=== PATIENT | male | born 1995 | race Caucasian/White ===

== ENCOUNTER 2020-02-07 23:36 | Emergency (ER) | payer SELFPAY ==
[~2020-02-07] VITALS: Ht 182.9 cm; Wt 74.8 kg
[2020-02-07 23:44] VITALS: Ht 182.9 cm; Wt 74.8 kg
[2020-02-08 00:30] VITALS: BP 134/83
== END 2020-02-08 01:04 | disposition home or self-care (01) ==
LOC: ED 23:36
DX: S20.212A Contusion of left front wall of thorax, initial encounter (principal); W22.8XXA Striking against or struck by other objects, initial encounter; Y93.89 Activity, other specified; Y92.89 Other specified places as the place of occurrence of the external cause; Y99.8 Other external cause status
CPT/HCPCS: Q0092